=== PATIENT | female | born 1955 ===

== ENCOUNTER → 2018-01-17 11:14 | Outpatient (CLI) | payer OTHER, SELFPAY ==
[2018-01-17 12:50] LABS: Blood Urea Nitrogen 21 mg/dL (7-17); Estimated Glomerular Filt Rate > 60.0 mL/min (>60)
== END ==
PROVIDERS: PCP Internal Medicine; Visit Provider Orthopaedic Surgery Orthopaedic Surgery of the Spine
DX: M51.36 Other intervertebral disc degeneration, lumbar region (principal)
CPT/HCPCS: 36415; 82565; 84520

== ENCOUNTER → 2018-04-11 09:07 | Outpatient (CLI) | payer OTHER, SELFPAY ==
[2018-04-11 10:12] LABS: Cholesterol 247 mg/dL (140-199); HDL Cholesterol 49 mg/dL (40-60); LDL Cholesterol Calculated 180 mg/dL (<100); Triglycerides 91 mg/dL (35-150)
[2018-04-11 12:18] LABS: Thyroid Stimulating Hormone 1.71 uIU/mL (0.47-4.68)
== END ==
PROVIDERS: PCP Internal Medicine; Visit Provider Internal Medicine
DX: R07.9 Chest pain, unspecified (principal); Z82.49 Family history of ischemic heart disease and other diseases of the circulatory system
CPT/HCPCS: 36415; 80061; 84443

== ENCOUNTER → 2018-05-09 08:19 | Outpatient (CLI) | payer OTHER, SELFPAY ==
--- NOTE | 2018-05-09 09:19 | P.PCN_ITS ---
Cardiac Stress Test Report Referral & Results Date Patient Seen: 05/09/18 Time Patient Seen: 09:18 Requesting provider: Stefani Milton Indication: High risk factors Rest ECG: Unremarkable Procedure Note: After both written and verbal informed consent the patient had an IV started by the diagnostic imaging RN and then was hooked up to the treadmill monitoring system. The patient was placed on the treadmill at 1 mile an hour with no elevation and was then injected with the Britt scan material. The Cardiolite was then immediately administered. The patient spent an additional 2-3 minutes on the treadmill before being returned to the [facility] in the supine position. The patient had a normal response to all infused materials. Impression: Normal response as above, perfusion imaging will be reported separately Please note: Actual ECG tracings can be found in the PACS system.
--- NOTE | 2018-05-12 19:18 | DI.NM.S_ITS ---
DATE OF SERVICE: 05/09/2018 PROCEDURE: Pharmacological perfusion study. INDICATIONS: Chest pain, shortness of breath, underlying dyslipidemia. RADIOPHARMACEUTICAL: 26.1 mCi technetium-99m Myoview IV was injected at stress and 24.4 mCi technetium-99m Myoview IV was injected at rest. CARDIAC STRESS: Patient underwent IV Lexiscan perfusion study under the supervision of an attending staff as per protocol. She remained hemodynamically stable. No significant symptoms reported. Baseline EKG revealed sinus rhythm. During stress, there were no obvious ischemic changes. No significant arrhythmias seen. RAW DATA: Significant breast shadow seen. GATED STUDY: Resting stress LV ejection fraction 73%. Stress LV ejection fraction about 74%. No obvious wall motion abnormalities. No transient ischemic dilatation. TID ratio is 0.81, which is within normal limits. Resting LV end-diastolic volume is 84 mL. Lung/heart ratio is 0.36, which is within normal limits. MYOCARDIAL PERFUSION SCAN: Resting supine images revealed mildly decreased perfusion of apex. Stress supine and stress prone images revealed almost normal myocardial perfusion. I don't see any convincing ischemia or infarction pattern. CONCLUSION: I will call this study a normal myocardial perfusion study with evidence of breast tissue attenuation artifact which was seen during resting supine which improved during prone images. Stress supine images also did not reveal any significant perfusion defect. Overall, left ventricular (LV) function is preserved. This is a low-risk myocardial perfusion scan. Della Alexandre - [place]/ab doc#: [id number]/job#: [id number] dd: 05/12/2018 17:08:00 dt: 05/12/2018 19:07:00 DICTATING MD/COPIES TO: Kalpesh Urias MD COPIES MNE: [place]
== END ==
PROVIDERS: PCP Internal Medicine; Visit Provider Internal Medicine
DX: R07.9 Chest pain, unspecified (principal); R06.02 Shortness of breath; E78.5 Hyperlipidemia, unspecified
CPT/HCPCS: 78452; 93016; 93017; 93018; A9502; J2785

== ENCOUNTER → 2019-06-19 17:13 | Outpatient (ROUT) | payer OTHER, SELFPAY | PROVIDERS: PCP Internal Medicine; Visit Provider Internal Medicine | DX: R35.0 Frequency of micturition (principal) | CPT/HCPCS: 87086 ==

== ENCOUNTER → 2019-09-25 16:35 | Outpatient (CLI) | payer MEDICARE, OTHER, SELFPAY ==
--- NOTE | 2019-09-25 | DI.RAD.S_ITS ---
PROCEDURE: XR ELBOW RT MIN 3V INDICATIONS: RIGHT ELBOW PAIN TECHNIQUE: 3 views of the elbow were acquired. COMPARISON: None. FINDINGS: Bones: No fractures or dislocations. No suspicious bony lesions. Soft tissues: No elbow joint effusion. No suspicious soft tissue calcifications. IMPRESSION: Normal for age, source of current elbow pain symptoms is not seen. Dictated by: Joselo Duckworth M.D. on 09/25/2019 at 17:16 Approved by: Joselo Duckworth M.D. on 09/25/2019 at 17:17
--- NOTE | 2019-09-25 | DI.RAD.S_ITS ---
PROCEDURE: XR FOREARM RT 2V INDICATIONS: RIGHT ELBOW PAIN TECHNIQUE: 2 views of the forearm were acquired. COMPARISON: None. FINDINGS: Bones: No fractures or dislocations. No suspicious bony lesions. Soft tissues: No suspicious soft tissue calcifications or masses. IMPRESSION: No trauma found. Dictated by: Joselo Duckworth M.D. on 09/25/2019 at 17:17 Approved by: Joselo Duckworth M.D. on 09/25/2019 at 17:17
== END ==
PROVIDERS: PCP Internal Medicine; Referring Provider Internal Medicine; Visit Provider Internal Medicine
DX: M25.521 Pain in right elbow (principal)
CPT/HCPCS: 73080; 73090

== ENCOUNTER → 2020-02-11 14:41 | Outpatient (ROUT) | payer SELFPAY ==
[2020-02-11 14:43] LABS: Urine Drug Scr, Empl Non-NIDA See Separate Report
== END ==
PROVIDERS: PCP Internal Medicine
DX: Z02.1 Encounter for pre-employment examination (principal)
CPT/HCPCS: 81099

== ENCOUNTER → 2020-07-12 14:55 | Outpatient (CLI) | payer MEDICARE, OTHER, SELFPAY | PROVIDERS: PCP Internal Medicine; Referring Provider Internal Medicine; Visit Provider Internal Medicine | DX: M85.88 Other specified disorders of bone density and structure, other site (principal); Z78.0 Asymptomatic menopausal state; Z82.62 Family history of osteoporosis | CPT/HCPCS: 77080 ==

== ENCOUNTER → 2020-08-08 09:08 | Outpatient (CLI) | payer MEDICARE, OTHER, SELFPAY ==
[2020-08-08 10:21] LABS: Add Manual Diff / Slide Review NO; Basophils Absolute Auto 0 /uL (0-100); Basophils Percent Auto 1.1 % (0-2); Eosinophils Absolute Auto 100 /uL (0-450); Eosinophils Percent Auto 2.2 % (2-4); Hematocrit 38.7 % (36-46); Hemoglobin 12.7 g/dL (12.0-16.0); Lymphocytes Absolute Auto 1500 /uL (1100-4500); Lymphocytes Percent Auto 35.5 % (25-40); Mean Corpuscular Volume 94.2 fL (80-100); Monocytes Absolute Auto 300 /uL (0-900); Monocytes Percent Auto 6.6 % (3-14); Neutrophils Absolute Auto 2300 /uL (1500-7000); Neutrophils Percent Auto 54.6 % (50-75); Platelet Count 339 X10^3/uL (150-400); Red Blood Cell Count 4.11 X10^6/uL (4.0-5.2); Red Cell Distribution Width 13.5 % (11.6-14.8); White Blood Cell Count 4.2 X10^3/uL (4.5-11.0)
[2020-08-08 10:35] LABS: Alanine Aminotransferase 20 IU/L (<35); Albumin Globulin Ratio 1.4 (1.0-2.8); Alkaline Phosphatase 66 U/L (38-126); Aspartate Aminotransferase 28 IU/L (14-36); BUN Creatinine Ratio 23.7 (6-22); Bilirubin Total 0.4 mg/dL (0.2-1.3); Blood Urea Nitrogen 18 mg/dL (7-17); Carbon Dioxide 32 mmol/L (22-32); Chloride 106 mmol/L (98-107); Cholesterol 287 mg/dL (140-199); Estimated Glomerular Filt Rate > 60.0 mL/min (>60); Globulin 2.8 g/dL (1.7-4.1); Glucose 98 mg/dL (80-110); HDL Cholesterol 57 mg/dL (40-60); HEMOLYSIS < 15 (0-50); LDL Cholesterol Calculated 206 mg/dL (<100); Potassium 4.6 mmol/L (3.4-5.1); Sodium 138 mmol/L (137-145); Total Protein 6.8 g/dL (6.3-8.2); Triglycerides 121 mg/dL (35-150)
[2020-08-08 11:36] LABS: Vitamin D 25 Hydroxy (D3) 38.4 ng/mL (30.0-100.0)
[2020-08-08 11:51] LABS: Thyroid Stimulating Hormone 2.22 uIU/mL (0.47-4.68)
== END ==
PROVIDERS: PCP Internal Medicine; Referring Provider Internal Medicine; Visit Provider Internal Medicine
DX: Z13.220 Encounter for screening for lipoid disorders (principal); E55.9 Vitamin D deficiency, unspecified; M85.80 Other specified disorders of bone density and structure, unspecified site; E78.5 Hyperlipidemia, unspecified; R23.2 Flushing; F33.0 Major depressive disorder, recurrent, mild
CPT/HCPCS: 36415; 80053; 80061; 82306; 84443; 85025

== ENCOUNTER → 2020-08-16 16:59 | Outpatient (CLI) | payer MEDICARE, OTHER, SELFPAY ==
--- NOTE | 2020-08-16 | DI.MG.S_ITS ---
BILATERAL DIGITAL SCREENING MAMMOGRAM 3D/2D WITH CAD: 08/16/2020 CLINICAL: Routine screening. Comparison is made to exams dated: 08/03/2015 mammogram, 02/05/2014 mammogram, and 12/27/2011 mammogram - outside location. There are scattered fibroglandular elements in both breasts. Current study was also evaluated with a Computer Aided Detection (CAD) system. No significant masses, calcifications, or other findings are seen in either breast. There has been no significant interval change. IMPRESSION: NEGATIVE There is no mammographic evidence of malignancy. A 1 year screening mammogram is recommended. This exam was interpreted at Station ID: [id number]. NOTE: For mammograms, a report in lay terms will be sent to the patient. Approximately 15% of breast malignancies will not be visualized mammographically. In the management of a palpable breast mass, a negative mammogram must not discourage biopsy of a clinically suspicious lesion. Electronically Signed By: Chaparro Loza M.D. at/tae:08/17/2020 07:37:37 letter sent: Normal Exam ACR BI-RADS Category 1: Negative [id number]
== END ==
PROVIDERS: PCP Internal Medicine; Referring Provider Internal Medicine; Visit Provider Internal Medicine
DX: Z12.31 Encounter for screening mammogram for malignant neoplasm of breast (principal)
CPT/HCPCS: 77063; 77067

== ENCOUNTER → 2020-08-19 09:00 | Outpatient (CLI) | payer MEDICARE, OTHER, SELFPAY ==
[2020-08-19] MEDS: COVID-19 VACC #1, MRNA(MOD) 100 MCG/0.5 ML VIAL IM (09:08)
== END ==
PROVIDERS: PCP Internal Medicine; Visit Provider Internal Medicine
DX: Z23 Encounter for immunization (principal)
CPT/HCPCS: 0011A; 91301

== ENCOUNTER → 2020-09-16 10:26 | Outpatient (CLI) | payer MEDICARE, OTHER, SELFPAY ==
[2020-09-16] MEDS: COVID-19 VACC #2, MRNA(MOD) 100 MCG/0.5 ML VIAL IM (10:28)
== END ==
PROVIDERS: Visit Provider Internal Medicine
DX: Z23 Encounter for immunization (principal)
CPT/HCPCS: 0012A; 91301

== ENCOUNTER → 2021-10-11 08:51 | Outpatient (CLI) | payer MEDICARE, OTHER, SELFPAY ==
--- NOTE | 2021-10-11 | DI.MG.S_ITS ---
BILATERAL DIGITAL SCREENING MAMMOGRAM 3D/2D WITH CAD: 10/11/2021 CLINICAL: Routine screening. Comparison is made to exams dated: 08/16/2020 mammogram - [facility] and 08/03/2015 mammogram - outside formerly [facility]. There are scattered fibroglandular elements in both breasts. Current study was also evaluated with a Computer Aided Detection (CAD) system. There is a new cluster of calcifications in the left breast posterior depth central to the nipple seen on the mediolateral oblique view only. These calcifications localize to the lateral breast on tomosynthesis views. No other significant masses, calcifications, or other findings are seen in either breast. IMPRESSION: INCOMPLETE: NEEDS ADDITIONAL IMAGING EVALUATION The new cluster of calcifications in the left breast is indeterminate. Exaggerated CC, magnification, and lateral views as well as a diagnostic mammogram are recommended. This exam was interpreted at Station ID: [id number]. NOTE: For mammograms, a report in lay terms will be sent to the patient. Approximately 15% of breast malignancies will not be visualized mammographically. In the management of a palpable breast mass, a negative mammogram must not discourage biopsy of a clinically suspicious lesion. Electronically Signed By: Jacinto huddleston/tae:10/11/2021 09:42:06 letter sent: Additional Imaging Needed ACR BI-RADS Category 0: Incomplete [id number]
== END ==
PROVIDERS: PCP Internal Medicine; Referring Provider Obstetrics & Gynecology; Visit Provider Obstetrics & Gynecology
DX: Z12.31 Encounter for screening mammogram for malignant neoplasm of breast (principal)
CPT/HCPCS: 77063; 77067

== ENCOUNTER → 2021-10-11 09:10 | Outpatient (CLI) | payer MEDICARE, OTHER, SELFPAY ==
[2021-10-11 10:59] LABS: Alanine Aminotransferase 16 IU/L (<35); Albumin 4.3 g/dL (3.5-5.0); Albumin Globulin Ratio 1.8 (1.0-2.8); Alkaline Phosphatase 55 U/L (38-126); Aspartate Aminotransferase 24 IU/L (14-36); BUN Creatinine Ratio 18.4 (6-22); Bilirubin Total 0.4 mg/dL (0.2-1.3); Blood Urea Nitrogen 16 mg/dL (7-17); Calcium 9.4 mg/dL (8.4-10.2); Carbon Dioxide 29 mmol/L (22-32); Chloride 105 mmol/L (98-107); Cholesterol 184 mg/dL (140-199); Estimated Glomerular Filt Rate > 60.0 mL/min (>60); Globulin 2.4 g/dL (1.7-4.1); Glucose 101 mg/dL (80-110); HDL Cholesterol 53 mg/dL (40-60); HEMOLYSIS < 15 (0-50); LDL Cholesterol Calculated 114 mg/dL (<100); Potassium 4.8 mmol/L (3.4-5.1); Sodium 141 mmol/L (137-145); Total Protein 6.7 g/dL (6.3-8.2); Triglycerides 85 mg/dL (35-150)
== END ==
PROVIDERS: PCP Internal Medicine; Referring Provider Internal Medicine; Visit Provider Internal Medicine
DX: E78.5 Hyperlipidemia, unspecified (principal)
CPT/HCPCS: 36415; 80053; 80061

== ENCOUNTER → 2021-11-27 09:18 | Outpatient (CLI) | payer MEDICARE, OTHER, SELFPAY ==
--- NOTE | 2021-11-27 09:19 | DI.MG.S_ITS ---
UNILATERAL LEFT DIGITAL DIAGNOSTIC MAMMOGRAM 3D/2D WITH ADDITIONAL VIEWS: 11/27/2021 CLINICAL: Patient returns for magnification views of microcalcifications in the left breast. Comparison is made to exams dated: 10/11/2021 mammogram, 08/16/2020 mammogram - [facility], and 08/03/2015 mammogram - outside location. There are scattered fibroglandular elements in left breast. There are grouped heterogeneous calcifications in the left breast posterior depth inferior region seen on the mediolateral oblique view only. These are confirmed in today's additional views but again are only seen on the craniocaudal projection. There is suggestion of possible curvilinear orientation. These calcifications localize to the lateral breast on tomosynthesis views. No other significant masses or calcifications are seen in the breast. IMPRESSION: PROBABLY BENIGN The grouped heterogeneous calcifications in the left breast appear to be in a curvilinear distribution that may represent early vascular calcifications and are probably benign. A follow-up left mammogram in 6 months is recommended to demonstrate stability. Findings and recommendations were conveyed to the patient during today's evaluation. This exam was interpreted at Station ID: [id number]. NOTE: For mammograms, a report in lay terms will be sent to the patient. Approximately 15% of breast malignancies will not be visualized mammographically. In the management of a palpable breast mass, a negative mammogram must not discourage biopsy of a clinically suspicious lesion. Electronically Signed By: Chaparro Loza M.D. aty/:11/27/2021 10:53:35 ACR BI-RADS Category 3: Probably benign [id number]
== END ==
PROVIDERS: PCP Internal Medicine; Referring Provider Obstetrics & Gynecology; Visit Provider Obstetrics & Gynecology
DX: R92.8 Other abnormal and inconclusive findings on diagnostic imaging of breast (principal); R92.1 Mammographic calcification found on diagnostic imaging of breast
CPT/HCPCS: 77065; G0279

== ENCOUNTER → 2022-01-23 11:11 | Outpatient (CLI) | payer MEDICARE, OTHER, SELFPAY ==
[2022-01-23 11:47] LABS: COVID19 -Nasal RAPID Negative (Negative)
== END ==
PROVIDERS: PCP Internal Medicine; Visit Provider Surgery
DX: Z20.822 Contact with and (suspected) exposure to COVID-19 (principal); Z01.812 Encounter for preprocedural laboratory examination
CPT/HCPCS: 87635; C9803

== ENCOUNTER 2022-01-24 09:26 | Day surgery (SDC) | payer MEDICARE, OTHER, SELFPAY ==
--- NOTE | 2022-01-24 | PATH_ITS ---
[facility] Accession Number: [id number] . 01 Material submitted: . PART A: colon - ASCENDING COLON POLYPS X 3 PART B: sigmoid colon - SIGMOID COLON POLYP . 01 Clinical history: . SDC . 01 Diagnosis: A. Ascending Colon Polyps x3, Biopsy: Sessile serrated adenomas. . B. Sigmoid Colon Polyp, Biopsy: Tubulovillous adenoma. No high-grade dysplasia or malignancy. MRV 01/26/2022 1333 Local . 01 Electronically signed: . Jenna Cai MD, Pathologist NPI- [id number] . 01 Gross description: . Part A: ASCENDING COLON POLYPS X 3: Received in formalin are 3 fragment(s) of hull, soft tissue measuring 1.0 x 0.2 x 0.2 cm to 0.4 x 0.3 x 0.1 cm submitted entirely in 1 cassette(s) Part B: SIGMOID COLON POLYP: Received in formalin is 1 fragment(s) of hull, soft tissue measuring 1.2 x 0.6 x 0.3 cm which is bisected and submitted entirely in 1 cassette(s) /CPE 01/25/2022 0913 Local . 01 Pathologist provided ICD-10: D12.2, D12.5 . 01 CPT . 356822, 393848 Specimen Comment: A courtesy copy of this report has been sent to [phone] Performed at: 01 [facility] [address] [place] [address], [place], [place] [id number] MD Rigo Keane MD Phone: [phone]
[2022-01-24 10:16] VITALS: BMI 26.4
[2022-01-24 10:30] VITALS: BP 117/72; PULSE 62; RESP 14; TEMP 36.5; O2SAT 97
[2022-01-24] MEDS: SODIUM CHLORIDE 0.9% 1,000 ML 84 ML IV (10:33)
--- NOTE | 2022-01-24 10:44 | PM.HP.1 ---
History of Present Illness History of Present Illness Date Patient Seen: 01/24/22 Time Patient Seen: 10:44 Chief complaint: SDC Narrative: Indicated for colon cancer screening. Patient History Medical History ADHD (~1991) Ankle arthritis Ankle pain (~1973) C. difficile colitis (~07/2016) Depression Family history of gynecological problem Fractures (~1973) Herpes Measles Mumps Skin cancer (~2016) Spinal stenosis Surgical History Anesthesia History of ankle surgery History of surgery (~2015) Status post Mohs surgery (~2016) Family & Social History Family History Brother Age: 85 Heart disease Skin problem S/P triple vessel bypass Brother Age: 74 Throat cancer Skin cancer High cholesterol Father Heart disease Hypertension Stroke Dementia Grandfather Depression Mother Heart disease High cholesterol Sister Age: 77 High cholesterol Sister Age: 84 High cholesterol Skin problem Grandmother No problems noted. Grandmother No problems noted. Social History: household members spouse Tobacco & Substance use: Smoking Status Never smoker alcohol intake current alcohol intake frequency a few times a week Substance Use Type does not use Meds Home Medications and Allergies Home Medications Medication Instructions Recorded Confirmed Type valacyclovir 500 mg tablet 500 mg PO DAILY #30 tabs 04/07/18 01/24/22 Rx CMP Estriol cream 0.1% See Rx Instructions .Route 12/29/19 01/24/22 Rx .COMPLEX #30 grams atorvastatin 10 mg tablet (Lipitor) 10 mg PO DAILY 10/31/20 01/24/22 History Allergies Allergy/AdvReac Type Severity Reaction Status Date / Time codeine [CODEINE] Allergy Mild vomiting Verified 01/24/22 10:33 morphine [MORPHINE] Allergy Mild hives Verified 01/24/22 10:33 Review of Systems Review of Systems ROS: Yes All systems reviewed with the patient and are negative except as otherwise documented Exam Vital Signs (past 8 hours): - 01/24/22 10:30 Temperature 97.7 F Pulse Rate 62 Respiratory Rate 14 Blood Pressure 117/72 Pulse Oximetry 97 Oxygen Delivery Method Room Air Oxygen Delivery Method Room Air Const General: cooperative HENMT Head: normal to inspection Eyes General: appearance normal, both eyes and all related structures Neck Neck: normal visual inspection Chest Chest: normal inspection of the chest Resp Effort & Inspection: normal respiratory effort Cardio Rate: regular rate GI Inspection: normal to inspection Skin General: no rashes or lesions noted Neuro General: patient alert and patient awake Extrem General: normal to inspection and no pedal edema Psych Appearance: grossly normal Assessment & Plan Assessment & Plan narrative: 66-year-old female indicated for colon cancer screening. Prior negative colonoscopies. Last 1 she believes was 10 years ago more last. Colonoscopy is planned for today. Time Spent With Patient Critical Care time: I spent a total of [] minutes of critical care time on this patient's care today; this time is exclusive of procedural time.
--- NOTE | 2022-01-24 10:46 | PM.PREOP ---
Pre-operative Note COVID-19 COVID-19 status: Negative Result date/Date tested (Pos, Neg/Pending): 01/23/22 Criteria for continued procedure: Possibility delay results in more complex future surgery or treatment Interval Note History & Physical reviewed/Exam performed by Physician: Yes Changes to H&P: No ASA Class (for procedural sedation): II
--- NOTE | 2022-01-24 11:43 | P.OP.COLON_ITS ---
Operative Date/Time/Diagnoses Date of procedure: 01/24/22 Time of procedure: 11:43 Pre-op diagnosis: Colon cancer screening Post-op diagnosis: same Procedure & Clinicians Study performed: Colonoscopy with hot snare polypectomy Same procedure as scheduled: Yes Indications: Colon cancer screening Surgeon: Jose Henry Procedure Notes SCOAP/Timeout: Done Procedure in detail: After the risks and benefits were explained, written and verbal informed consent was obtained. The patient was brought into the procedure room and placed into the left lateral decubitus position. Please see nurse necktie operator pockets and pieces notes for sedation details. Digital rectal examination was accomplished. The scope was introduced into the patient and advanced under direct visualization to the cecum as identified by the appendiceal orifice and ileocecal valve. The scope was slowly withdrawn to carefully examine the mucosa for any defects or lesions. Comprehensive imaging was accomplished throughout the rectum including the dentate line. The colon was decompressed, the scope was then removed from the patient who tolerated the procedure well. Pediatric colonoscope Bowel prep adequate Scope withdrawal time: 18 minutes Sedation minutes: 27 Complications: none Impression: Patient had a couple of flat 7 mm polyps in the ascending colon removed with hot snare. I initially used a 1 cm snare and swap this out for the 2 cm snare for better candy counter clerk. There was a 3rd polyp in this location right at the hepatic flexure that was semi pedunculated measuring perhaps 7 mm in greatest dimension also removed with hot snare. In the sigmoid colon there was a pedunculated oblong polyp that was perhaps a cm in greatest dimension removed with hot snare. Patient had internal hemorrhoids with hypertrophied anal papillae. Endoscopic diagnosis 1. Multiple colon polyps 2. Hemorrhoids grade 2 to 3 with hypertrophied anal papillae Post-procedure Plan for aftercare: 1. Await histopathology 2. Repeat colonoscopy will likely be suggested for 3 years time. Disposition: PACU
[2022-01-24 11:48] VITALS: BP 109/61; PULSE 57; RESP 14; TEMP 36.3; O2SAT 100
[2022-01-24 11:53] VITALS: BP 117/67; PULSE 58; RESP 20; O2SAT 100
[2022-01-24 11:58] VITALS: BP 129/73; PULSE 72; RESP 18; O2SAT 99
[2022-01-24 12:03] VITALS: BP 117/68; PULSE 53; RESP 16; TEMP 36.4; O2SAT 100
[2022-01-24 12:13] VITALS: BP 129/64; PULSE 53; RESP 16; O2SAT 100
== END 2022-01-24 12:23 | disposition home or self-care (01) ==
PROVIDERS: PCP Internal Medicine; Referring Provider Internal Medicine Gastroenterology; Visit Provider Internal Medicine Gastroenterology
PROC: 0DJD8ZZ Inspection of Lower Intestinal Tract, Via Natural or Artificial Opening Endoscopic (ICD-10-PCS; CPT 45378; principal; 2022-01-24 11:00)
DX: Z12.11 Encounter for screening for malignant neoplasm of colon (principal); K64.2 Third degree hemorrhoids; D12.2 Benign neoplasm of ascending colon; D12.5 Benign neoplasm of sigmoid colon
CPT/HCPCS: 45385; J2704

== ENCOUNTER 2022-01-25 21:12 | Emergency (ER) | payer MEDICARE, OTHER, SELFPAY ==
[2022-01-25 21:22] VITALS: BP 170/77; PULSE 96; RESP 18; TEMP 37.4; O2SAT 99; BMI 25.7
--- NOTE | 2022-01-25 22:24 | PC.NURSE ---
Pt informed that there is a wait to be seen in the ER andpeople are seen based on acuity. Pt unwilling to continue to wait to be seen in the Emergency Department. Pt signed form and left ER.
== END 2022-01-25 22:29 | disposition left against medical advice (07) ==
PROVIDERS: Emergency Provider Emergency Medicine; PCP Internal Medicine
CPT/HCPCS: 99281

== ENCOUNTER 2022-01-26 14:32 | Emergency (ER) | payer MEDICARE, OTHER, SELFPAY ==
[2022-01-26 14:44] VITALS: BP 140/68; PULSE 80; RESP 18; TEMP 36.7; O2SAT 98; BMI 24.0
--- NOTE | 2022-01-26 16:01 | DI.CT.S_ITS ---
PROCEDURE: CT ABDOMEN PELVIS W CON INDICATIONS: RLQ abdominal pain, S/P Colonoscopy 2 days ago TECHNIQUE: After the administration of intravenous contrast, axial sections acquired from the lung bases to the pubic symphysis. Coronal and sagittal reformats were performed. For radiation dose reduction, the following was used: automated exposure control, adjustment of mA and/or kV according to patient size. COMPARISON: None. FINDINGS: Image quality: Excellent. Lung bases: Mild bibasilar atelectasis.. Heart: No significant findings. ABDOMEN: Liver: Unremarkable. Gallbladder: Gallbladder is decompressed but otherwise unremarkable. Biliary ducts: Unremarkable. Pancreas: Unremarkable. Spleen: Unremarkable. Adrenal Glands: Unremarkable. Kidneys and Ureters: Unremarkable. Stomach and Bowel: Stomach and small bowel appear unremarkable. There is circumferential wall thickening and surrounding inflammatory changes involving the cecum and proximal ascending colon. No evidence for free air or organized fluid collection. Peritoneum: No abnormal intraperitoneal fluid. No free air. Ventral Wall: Tiny fat containing umbilical hernia without acute inflammation. Abdominal Nodes: No retroperitoneal or mesenteric adenopathy by size criteria. Vessels: Scattered atherosclerotic calcifications of the abdominal aorta and iliac vessels without aneurysmal dilatation. The inferior vena cava appears patent. PELVIS: Pelvic Organs: Unremarkable. Bladder: Unremarkable. Pelvic Nodes: No enlarged lymph nodes. Miscellaneous: No inguinal hernias are seen. Bones: No acute vertebral body compression fractures. Multilevel spondylitic changes throughout the imaged spine. No suspicious osseous lesions. There are postsurgical changes involving the spinous process at L4-5 with grade 1 anterolisthesis of L4 on L5. IMPRESSION: 1. Moderate circumferential wall thickening of the cecum and proximal ascending colon with surrounding inflammatory changes. No evidence for perforation or abscess formation. No free air or free fluid identified in the abdomen or pelvis. Findings may represent sequela of recent colonoscopy, especially if patient had biopsies performed in this region. Otherwise, an infectious or inflammatory process may have a similar appearance. Recommend correlation with procedural note from recent colonoscopy for description of possible neoplastic process in this location. Clinical evaluation with follow-up imaging can be considered. 2. Atherosclerosis. 3. Multilevel spondylosis with grade 1 anterolisthesis of L4 on L5. Postsurgical changes of the interspinous space of the spinous processes of L4 on L5. Dictated by: Chaparro Loza M.D. on 01/26/2022 at 17:10 Approved by: Chaparro Loza M.D. on 01/26/2022 at 17:16
[2022-01-26 16:12] LABS: Add Manual Diff / Slide Review NO; Basophils Absolute Auto 0 /uL (0-100); Basophils Percent Auto 0.7 % (0-2); Eosinophils Absolute Auto 100 /uL (0-450); Eosinophils Percent Auto 1.3 % (2-4); Lymphocytes Absolute Auto 1100 /uL (1100-4500); Mean Corpuscular HGB Conc 34.3 % (30-36); Mean Corpuscular Hemoglobin 32.2 PG (26-34); Mean Corpuscular Volume 93.9 fL (80-100); Monocytes Absolute Auto 400 /uL (0-900); Monocytes Percent Auto 6.7 % (3-14); Neutrophils Absolute Auto 4800 /uL (1500-7000); Neutrophils Percent Auto 74.3 % (50-75); Platelet Count 274 X10^3/uL (150-400); Red Blood Cell Count 3.73 X10^6/uL (4.0-5.2); Red Cell Distribution Width 13.4 % (11.6-14.8); White Blood Cell Count 6.5 X10^3/uL (4.5-11.0)
[2022-01-26] MEDS: KETOROLAC 30 MG/ML VIAL 15 MG IV (16:19)
[2022-01-26 16:24] LABS: Alanine Aminotransferase 18 IU/L (<35); Albumin 4.2 g/dL (3.5-5.0); Albumin Globulin Ratio 1.4 (1.0-2.8); Alkaline Phosphatase 69 U/L (38-126); Aspartate Aminotransferase 26 IU/L (14-36); Bilirubin Total 0.3 mg/dL (0.2-1.3); Blood Urea Nitrogen 15 mg/dL (7-17); Calcium 8.6 mg/dL (8.4-10.2); Carbon Dioxide 30 mmol/L (22-32); Chloride 106 mmol/L (98-107); Estimated Glomerular Filt Rate 57 mL/min (>60); Glucose 116 mg/dL (80-110); HEMOLYSIS < 15 (0-50); Sodium 141 mmol/L (137-145); Total Protein 7.2 g/dL (6.3-8.2)
--- NOTE | 2022-01-26 18:00 | ED.ABDPAIN ---
HPI - Abdominal Pain General Chief Complaint: Abdominal Pain Stated Complaint: colonoscopy 2 days ago. Chills, feeling ill Time Seen by Provider: 01/26/22 15:51 Source: patient Mode of arrival: Ambulatory History of Present Illness HPI narrative: This 66-year-old woman with no significant chronic health problems had a screening colonoscopy 2 days ago with some biopsies. Since the colonoscopy she has had significant right lower quadrant pain and even a low-grade fever yesterday. The fever is not present today but the pain is somewhat worse. She has not had vomiting though she has had some nausea. She is able to ambulate and eat but is concerned this might represent something dangerous. She specifically denies URI symptoms, chest pain, shortness of breath or other concerning symptoms at this time. Related Data Home Medications Medication Instructions Recorded Confirmed atorvastatin 10 mg tablet (Lipitor) 10 mg PO DAILY 10/31/20 01/25/22 Previous Rx's Medication Instructions Recorded valacyclovir 500 mg tablet 500 mg PO DAILY #30 tabs 04/07/18 CMP Estriol cream 0.1% See Rx Instructions .Route 12/29/19 .COMPLEX #30 grams Allergies Allergy/AdvReac Type Severity Reaction Status Date / Time codeine [CODEINE] Allergy Mild vomiting Verified 01/24/22 10:33 morphine [MORPHINE] Allergy Mild hives Verified 01/24/22 10:33 Review of Systems Review of Systems Narrative: Complete review of systems is negative other than as noted. Patient History Medical History (Updated 01/26/22 @ 18:06 by Shawn Schofield MD) ADHD (~1991) Ankle arthritis Ankle pain (~1973) C. difficile colitis (~07/2016) Depression Family history of gynecological problem Fractures (~1973) Herpes Measles Mumps Skin cancer (~2016) Spinal stenosis Surgical History Anesthesia History of ankle surgery History of surgery (~2015) Status post Mohs surgery (~2016) Family History Brother Age: 85 Heart disease Skin problem S/P triple vessel bypass Brother Age: 74 Throat cancer Skin cancer High cholesterol Father Heart disease Hypertension Stroke Dementia Grandfather Depression Mother Heart disease High cholesterol Sister Age: 77 High cholesterol Sister Age: 84 High cholesterol Skin problem Grandmother No problems noted. Grandmother No problems noted. Social History household members: spouse Smoking Status: Never smoker alcohol intake: current Smoking Status: Never smoker alcohol intake frequency: a few times a week Substance Use Type: does not use Exam Narrative Exam Narrative: GENERAL: Alert, cooperative and in no distress. HEAD: Atraumatic. Normocephalic. EYES: Sclera are clear without icterus. Extraocular movements are full. ENT: No rhinorrhea. Oropharynx is moist. Mouth exam is benign. NECK: Supple. Full range of motion. CARDIOVASCULAR: Normal rate and rhythm without murmur gallop or rub. RESPIRATORY: Clear to auscultation. Breath sounds equal bilaterally. No wheezes, rales, or rhonchi. GASTROINTESTINAL: Moderate right lower quadrant pain without guarding or mass. EXTREMITIES: No edema, full range of motion. No obvious trauma. BACK: Normal inspection, no CVA tenderness. NEURO: Nonfocal examination, normal speech, normal gait. SKIN: No rash or erythema of visible areas PSYCH: Normally oriented. Normal range of affect. Appropriate behavior Initial Vital Signs Initial Vital Signs: Vital Signs Temperature 98.1 F 01/26/22 14:44 Pulse Rate 80 01/26/22 14:44 Respiratory Rate 18 01/26/22 14:44 Blood Pressure 140/68 01/26/22 14:44 Pulse Oximetry 98 01/26/22 14:44 Oxygen Delivery Method 01/26/22 14:44 Course Orders Ordered: ED Orders 01/26/22 16:01 CT abdomen pelvis w con Stat Complete Blood Count AUTO DIFF Stat Comprehensive Metabolic Panel Stat UA dip and micro [Urinalysis and Microscopic] Stat Discontinued Medications Ketorolac Tromethamine (Ketorolac 30 Mg/Ml Vial) 15 mg IV NOW ONE Stop: 01/26/22 16:05 Last Admin: 01/26/22 16:19 Dose: 15 mg Documented By: RL Vital Signs Vital signs: Vital Signs - 8 hr 01/26/22 14:44 Temperature 98.1 F Pulse Rate 80 Respiratory Rate 18 Blood Pressure 140/68 Pulse Oximetry 98 Oxygen Delivery Method Room Air MDM - Abdominal Pain Lab Data Result diagrams: 01/26/22 16:04 01/26/22 16:04 Labs: Lab Results 01/26/22 01/26/22 Range/Units 16:04 16:04 WBC 6.5 (4.5-11.0) X10^3/uL RBC 3.73 L (4.0-5.2) X10^6/uL Hgb 12.0 (12.0-16.0) g/dL Hct 35.0 L (36-46) % MCV 93.9 (80-100) fL MCH 32.2 (26-34) PG MCHC 34.3 (30-36) % RDW 13.4 (11.6-14.8) % Plt Count 274 (150-400) X10^3/uL Neut % (Auto) 74.3 (50-75) % Lymph % (Auto) 17.0 L (25-40) % [place] % (Auto) 6.7 (3-14) % Eos % (Auto) 1.3 L (2-4) % Baso % (Auto) 0.7 (0-2) % Neut # (Auto) 4800 (3509-9892) /uL Lymph # (Auto) 1100 (4009-5462) /uL [place] # (Auto) 400 (0-900) /uL Eos # (Auto) 100 (0-450) /uL Baso # (Auto) 0 (0-100) /uL Sodium 141 (137-145) mmol/L Potassium 4.0 (3.4-5.1) mmol/L Chloride 106 (98-107) mmol/L Carbon Dioxide 30 (22-32) mmol/L BUN 15 (7-17) mg/dL Creatinine 1.07 H (0.52-1.04) mg/dL Estimated GFR 57 L (>60) mL/min BUN/Creatinine Ratio 14.0 (6-22) Glucose 116 H (80-110) mg/dL Calcium 8.6 (8.4-10.2) mg/dL Total Bilirubin 0.3 (0.2-1.3) mg/dL AST 26 (14-36) IU/L ALT 18 (<35) IU/L Alkaline Phosphatase 69 (38-126) U/L Total Protein 7.2 (6.3-8.2) g/dL Albumin 4.2 (3.5-5.0) g/dL Globulin 3.0 (1.7-4.1) g/dL Albumin/Globulin Ratio 1.4 (1.0-2.8) Imaging Data CT scan - abdomen/pelvis: Radiologist's Impression: IMPRESSION: 1. Moderate circumferential wall thickening of the cecum and proximal ascending colon with surrounding inflammatory changes. No evidence for perforation or abscess formation. No free air or free fluid identified in the abdomen or pelvis. Findings may represent sequela of recent colonoscopy, especially if patient had biopsies performed in this region. Otherwise, an infectious or inflammatory process may have a similar appearance. Recommend correlation with procedural note from recent colonoscopy for description of possible neoplastic process in this location. Clinical evaluation with follow-up imaging can be considered. 2. Atherosclerosis. 3. Multilevel spondylosis with grade 1 anterolisthesis of L4 on L5. Postsurgical changes of the interspinous space of the spinous processes of L4 on L5. Dictated by: Chaparro Loza M.D. on 01/26/2022 at 17:10 Approved by: Chaparro Loza M.D. on 01/26/2022 at 17:16 Discharge Plan Departure Patient Disposition: Home Clinical Impression: Abdominal pain Instructions: DI for Abdominal Pain-Adult Activity Restrictions/Additional Instructions: Thank you for interesting as with her care today. The CT scan shows some inflammatory changes in the right side of your colon which are consistent with the biopsies that you had. So this probably represents just is side effect of the procedure that you had. No dangerous abnormality is discovered. No need to do anything different right now. Tylenol or ibuprofen is reasonable to take to help manage the pain. Follow up next week if things are not resolving. Follow-up right away however if things seem to be getting a lot worse with repeated vomiting, high fever or worsening pain. Prescriptions: No Action CMP Estriol cream 0.1% See Rx Instructions .ROUTE .COMPLEX Qty: 30 2RF Rx Instructions: Apply 1 gm to vaginal at bedtime for 14 nights then 2x per week valacyclovir 500 mg tablet 500 mg PO DAILY Qty: 30 5RF atorvastatin [Lipitor] 10 mg tablet 10 mg PO DAILY Referrals: Becky Redmond MD [Primary Care Provider] -
[2022-01-26 18:18] VITALS: BP 151/77; PULSE 86; RESP 16; O2SAT 97
== END 2022-01-26 18:18 | disposition home or self-care (01) ==
PROVIDERS: Emergency Provider Family Medicine Addiction Medicine; PCP Internal Medicine
DX: R10.31 Right lower quadrant pain (principal); R50.9 Fever, unspecified
CPT/HCPCS: 36415; 74177; 80053; 85025; 96374; 99284; J1885; Q9967

== ENCOUNTER → 2022-08-28 08:26 | Outpatient (CLI) | payer MEDICARE, OTHER, SELFPAY ==
[2022-08-28 10:02] LABS: Alanine Aminotransferase 20 IU/L (<35); Albumin 4.4 g/dL (3.5-5.0); Albumin Globulin Ratio 1.5 (1.0-2.8); Alkaline Phosphatase 66 U/L (38-126); Aspartate Aminotransferase 27 IU/L (14-36); BUN Creatinine Ratio 26.1 (6-22); Bilirubin Total 0.5 mg/dL (0.2-1.3); Blood Urea Nitrogen 18 mg/dL (7-17); Calcium 9.2 mg/dL (8.4-10.2); Carbon Dioxide 29 mmol/L (22-32); Chloride 101 mmol/L (98-107); Cholesterol 232 mg/dL (140-199); Estimated Glomerular Filt Rate > 60 mL/min (>60); Glucose 90 mg/dL (80-110); HDL Cholesterol 51 mg/dL (40-60); HEMOLYSIS < 15 (0-50); LDL Cholesterol Calculated 157 mg/dL (<100); Potassium 4.4 mmol/L (3.4-5.1); Sodium 140 mmol/L (137-145); Total Protein 7.4 g/dL (6.3-8.2); Triglycerides 120 mg/dL (35-150)
[2022-08-28 10:49] LABS: Hep C Virus Ab w/Reflex Quant NEGATIVE s/c (NEGATIVE)
[2022-08-28 10:51] LABS: Vitamin B12 591 pg/mL (239-931)
== END ==
PROVIDERS: PCP Internal Medicine; Referring Provider Internal Medicine; Visit Provider Internal Medicine
DX: E78.5 Hyperlipidemia, unspecified (principal); E53.8 Deficiency of other specified B group vitamins; Z11.59 Encounter for screening for other viral diseases
CPT/HCPCS: 36415; 80053; 80061; 82607; 86803

== ENCOUNTER → 2023-02-23 10:26 | Outpatient (CLI) | payer MEDICARE, OTHER, SELFPAY ==
--- NOTE | 2023-02-23 10:28 | DI.RAD.S_ITS ---
PROCEDURE: XR HAND LT MIN 3V INDICATIONS: Left lateral CMC pain after fall TECHNIQUE: 3 views of the hand(s) acquired. COMPARISON: [facility], CR, XR WRIST LT MIN 3V, 02/23/2023, 10:35. FINDINGS: Bones: Comminuted distal radial fracture with intra-articular involvement noted. There is left styloid nondisplaced fracture as well Soft tissues: No suspicious soft tissue calcifications. IMPRESSION: Distal radial comminuted intra-articular fracture. Nondisplaced ulnar styloid tip fracture Approved by: Guru Trammell M.D. on 02/23/2023 at 11:06
--- NOTE | 2023-02-23 10:28 | DI.RAD.S_ITS ---
PROCEDURE: XR WRIST LT MIN 3V INDICATIONS: Left medial CMC pain after fall TECHNIQUE: 3 views of the wrist were acquired. COMPARISON: None. FINDINGS: Bones: Distal radial fracture with radiocarpal involvement. Small nondisplaced ulnar styloid avulsion fracture present as well. Otherwise appropriate osseous mineralization Soft tissues: No suspicious soft tissue calcifications. IMPRESSION: Nondisplaced comminuted intra-articular distal radial fracture. Nondisplaced ulnar styloid avulsion fracture Approved by: Guru Trammell M.D. on 02/23/2023 at 11:28
== END ==
PROVIDERS: PCP Family Medicine; Referring Provider Physician Assistant; Visit Provider Physician Assistant
DX: S52.572A Other intraarticular fracture of lower end of left radius, initial encounter for closed fracture (principal); S52.615A Nondisplaced fracture of left ulna styloid process, initial encounter for closed fracture; M25.532 Pain in left wrist
CPT/HCPCS: 73110; 73130

== ENCOUNTER → 2023-10-15 08:21 | Outpatient (CLI) | payer MEDICARE, OTHER, SELFPAY ==
[2023-10-15 08:55] LABS: Add Manual Diff / Slide Review NO; Basophils Absolute Auto 0 /uL (0-100); Eosinophils Absolute Auto 100 /uL (0-450); Eosinophils Percent Auto 2.8 % (2-4); Hematocrit 38.1 % (36-46); Hemoglobin 12.8 g/dL (12.0-16.0); Lymphocytes Absolute Auto 1300 /uL (1100-4500); Lymphocytes Percent Auto 34.6 % (25-40); Mean Corpuscular HGB Conc 33.7 % (30-36); Mean Corpuscular Hemoglobin 31.8 PG (26-34); Mean Corpuscular Volume 94.4 fL (80-100); Monocytes Absolute Auto 300 /uL (0-900); Monocytes Percent Auto 6.7 % (3-14); Neutrophils Absolute Auto 2100 /uL (1500-7000); Neutrophils Percent Auto 54.9 % (50-75); Platelet Count 294 X10^3/uL (150-400); Red Blood Cell Count 4.04 X10^6/uL (4.0-5.2); Red Cell Distribution Width 13.3 % (11.6-14.8); White Blood Cell Count 3.9 X10^3/uL (4.5-11.0)
[2023-10-15 10:07] LABS: Alanine Aminotransferase 20 IU/L (<35); Albumin Globulin Ratio 1.4 (1.0-2.8); Alkaline Phosphatase 60 U/L (38-126); Aspartate Aminotransferase 24 IU/L (14-36); Bilirubin Total 0.5 mg/dL (0.2-1.3); Blood Urea Nitrogen 20 mg/dL (7-17); Calcium 9.3 mg/dL (8.4-10.2); Carbon Dioxide 27 mmol/L (22-32); Chloride 108 mmol/L (98-107); Cholesterol 193 mg/dL (140-199); Estimated Glomerular Filt Rate > 60 mL/min (>60); Globulin 2.8 g/dL (1.7-4.1); Glucose 99 mg/dL (80-110); HDL Cholesterol 49 mg/dL (40-60); HEMOLYSIS < 15 (0-50); LDL Cholesterol Calculated 124 mg/dL (<100); Potassium 4.5 mmol/L (3.4-5.1); Sodium 138 mmol/L (137-145); Total Protein 6.8 g/dL (6.3-8.2); Triglycerides 100 mg/dL (35-150)
[2023-10-15 21:36] LABS: Hep C Virus Ab w/Reflex Quant NEGATIVE s/c (NEGATIVE)
[2023-10-17 08:08] LABS: Apolipoprotein B 93 mg/dL (<90)
== END ==
LOC: LAB 08:22
PROVIDERS: PCP Family Medicine; Referring Provider Family Medicine; Visit Provider Family Medicine
DX: E78.5 Hyperlipidemia, unspecified (principal); M85.80 Other specified disorders of bone density and structure, unspecified site; Z82.49 Family history of ischemic heart disease and other diseases of the circulatory system; S69.82XA Other specified injuries of left wrist, hand and finger(s), initial encounter
CPT/HCPCS: 36415; 80053; 80061; 82172; 85025; 86803

== ENCOUNTER → 2024-10-12 12:07 | Outpatient (CLI) | payer MEDICARE, OTHER, SELFPAY ==
[2024-10-12 12:46] LABS: Add Manual Diff / Slide Review NO; Basophils Absolute Auto 0 /uL (0-100); Basophils Percent Auto 0.8 % (0-2); Eosinophils Absolute Auto 100 /uL (0-450); Hematocrit 39.3 % (36-46); Hemoglobin 13.1 g/dL (12.0-16.0); Lymphocytes Absolute Auto 1400 /uL (1100-4500); Lymphocytes Percent Auto 24.1 % (25-40); Mean Corpuscular HGB Conc 33.3 % (30-36); Mean Corpuscular Hemoglobin 31.9 PG (26-34); Mean Corpuscular Volume 95.8 fL (80-100); Monocytes Absolute Auto 200 /uL (0-900); Monocytes Percent Auto 4.3 % (3-14); Neutrophils Absolute Auto 4000 /uL (1500-7000); Neutrophils Percent Auto 69.8 % (50-75); Platelet Count 317 X10^3/uL (150-400); Red Cell Distribution Width 13.3 % (11.6-14.8); White Blood Cell Count 5.7 X10^3/uL (4.5-11.0)
[2024-10-12 13:01] LABS: Alanine Aminotransferase 21 IU/L (<35); Albumin 4.7 g/dL (3.5-5.0); Albumin Globulin Ratio 1.9 (1.0-2.8); Alkaline Phosphatase 77 U/L (38-126); Aspartate Aminotransferase 29 IU/L (14-36); BUN Creatinine Ratio 17.7 (6-22); Bilirubin Total 0.5 mg/dL (0.2-1.3); Blood Urea Nitrogen 14 mg/dL (7-17); Calcium 9.5 mg/dL (8.4-10.2); Carbon Dioxide 24 mmol/L (22-32); Chloride 106 mmol/L (98-107); Estimated Glomerular Filt Rate > 60 mL/min (>60); Globulin 2.5 g/dL (1.7-4.1); Glucose 133 mg/dL (80-110); HEMOLYSIS < 15 (0-50); Potassium 4.5 mmol/L (3.4-5.1); Sodium 139 mmol/L (137-145); Total Protein 7.2 g/dL (6.3-8.2)
[2024-10-12 13:32] LABS: TSH w/ Reflex to FT4 1.67 uIU/mL (0.47-4.68)
[2024-10-12 13:49] LABS: Vitamin B12 Reflex MMA if <400 686 pg/mL (239-931)
[2024-10-12 15:07] LABS: Follicle Stimulating Hormone 51.1 mIU/mL; Vitamin D 25 Hydroxy (D3) 59.1 ng/mL (30.0-100.0)
[2024-10-14 12:39] LABS: Estradiol 12.5 pg/mL (0.0-54.7); Estriol,Serum <0.1 ng/mL (.); Estrone,Serum 36 pg/mL (0-125)
== END ==
LOC: LAB 12:10
PROVIDERS: PCP Family Medicine; Referring Provider Family Medicine; Visit Provider Family Medicine
DX: E78.2 Mixed hyperlipidemia (principal); G47.00 Insomnia, unspecified; Z82.49 Family history of ischemic heart disease and other diseases of the circulatory system; L90.0 Lichen sclerosus et atrophicus; N95.8 Other specified menopausal and perimenopausal disorders
CPT/HCPCS: 36415; 80053; 82306; 82607; 82670; 82677; 82679; 83001; 84144; 84443; 84999; 85025